=== PATIENT | male | born 1985 | race Hispanic/Latino ===

== ENCOUNTER 2022-05-23 16:46 | Emergency (ER) | payer SELFPAY | END 2022-05-23 20:30 | disposition home or self-care (01) | LOC: JD.ED 16:46 | DX: T59.6X1A Toxic effect of hydrogen sulfide, accidental (unintentional), initial encounter (principal); R51.9 Headache, unspecified; R42 Dizziness and giddiness | CPT/HCPCS: 36415; 71045; 71045-26; 80053; 85025; 99284 ==